=== PATIENT | male | born 1990 | race Caucasian/White ===

== ENCOUNTER → 2019-04-29 | Outpatient (CLI) | payer OTHER ==
--- NOTE | 2019-04-29 22:21 | CONS ---
CONSULTATION REASON FOR CONSULTATION: Hypersomnia. This is a 28-year-old in the [facility] who has been gaining weight and has been having progressively increased sleepiness and tiredness during the day. He is able to function and perform his job in the [email or web address]. However, he gets quite tired and sleepy at times. He has never fallen asleep while driving, never been involved in a motor vehicle accident. He is currently sleeping at home at 10 p.m., waking up at 6:40 a.m. in the morning. On weekends he wakes up at 9:00. He snores. He has been told by his girlfriend that he stops breathing. He has chronic back pain involving L5-S1 disc disease and this has limited his ability to exercise; as such, the patient has gained weight. He has chronic anxiety which is well managed with Celexa. No sleepwalking or sleeptalking. No sleep fragmentation. No excessive urination at nighttime. PAST MEDICAL HISTORY: 1. Chronic anxiety. 2. Chronic back pain. 3. Obesity. PAST SURGICAL HISTORY: None. DRUG ALLERGIES: CECLOR. OUTPATIENT MEDICATIONS: Outpatient medications include Celexa 10 mg p.o. daily. SOCIAL HISTORY: The patient is a nonsmoker. No history of alcoholism. No history of IV drugs. FAMILY HISTORY: Negative for sleep apnea. REVIEW OF SYSTEMS: Fourteen-point review of systems was done. Positive findings were all mentioned above in the history of present illness. Note that the patient has gained weight due to his lack of activity and he is up to 289 pounds compared to 234 back a year ago and 196 back around 5 years ago. He does have some witnessed apneas as reported by his girlfriend. No sleep paralysis. No hallucinations. No cataplexy. He prefers to sleep on his side and stomach. He watches TV in his bedroom. He can take a nap if given the opportunity to do so. PHYSICAL EXAMINATION: VITAL SIGNS: BP is 149/89, pulse 72, respirations 14, temperature 98.2, saturation 96% on room air. [place] score is 14. Height is 6 feet 3 inches, weight 302 and BMI 37.0. Neck size is 17 inches. GENERAL APPEARANCE: Calm, comfortable. HEAD: Atraumatic, normocephalic. Mallampati class I. LUNGS: Clear to auscultation. HEART: Heart sounds are regular rate and rhythm. Normal S1, S2. No S3, S4. No murmurs. ABDOMEN: Soft, nontender. No organomegaly. EXTREMITIES: No edema. No cyanosis or clubbing. NEUROLOGIC: Awake and alert. No focal neurological deficit. PSYCHIATRIC: Negative for anxiety or depression. SKIN: Negative for any wounds or ulceration. IMPRESSION: 1. Hypersomnia with possibility of obstructive sleep apnea. I think there is a reasonable chance for this patient to develop obstructive sleep apnea based on his anatomic features and weight gain. His BMI is 37. He has a Mallampati class I. His [place] score is 14. 2. Chronic anxiety. 3. Chronic back pain. PLAN: 1. Encourage weight loss. 2. Implement good sleep hygiene measures. 3. Extend sleep hours to an average of 7-8 hours per night. 4. Proceed with a home sleep study to rule out the possibility of obstructive sleep apnea. I will make further recommendations on treatment accordingly. BRIA / BJN: [id number] /
== END ==
LOC: SLEEP 14:31
PROVIDERS: ATTEND Internal Medicine Critical Care Medicine
DX: G47.10 Hypersomnia, unspecified (principal); F41.9 Anxiety disorder, unspecified; G89.29 Other chronic pain; M54.9 Dorsalgia, unspecified; R63.5 Abnormal weight gain; Z88.1 Allergy status to other antibiotic agents; Z68.37 Body mass index [BMI] 37.0-37.9, adult; Z79.899 Other long term (current) drug therapy
CPT/HCPCS: 99211